=== PATIENT | female | born 1990 | race Caucasian/White ===

== ENCOUNTER 2016-04-30 00:24 | Emergency (ER) | payer OTHER ==
[2016-04-30 01:02] VITALS: BP 140/82; PULSE 77; TEMP 97.5; BMI 31.9
--- NOTE | 2016-04-30 01:11 | PDOC ---
History of Present Illness - History of Present Illness Initial Comments: 04/30/16 01:12 The patient is a 26 year old female with history of PCOS and anemia who presents to the ED complaining of abdominal pain, in the midabdomen radiating to the right lower quadrant, sharp, persistent, with associated nausea and multiple episodes of nonbloody, nonbilious vomiting that began today. She states her nausea began around 3PM today and she subsequently took Zofran. At approximately 9 PM she began to experience abdominal pain and vomiting. No fever or chills. No dysuria, hematuria, frequency, or urgency. No abnormal vaginal bleeding or discharge. <Rebecca Carter - Last Filed: 04/30/16 03:48> - General History Source: Patient <Tito Robb - Last Filed: 04/30/16 04:00> - General Chief Complaint: Pain Stated Complaint: ABD PAIN,VOMITING Time Seen by Provider: 04/30/16 01:07 Past History <Rebecca Carter - Last Filed: 04/30/16 03:48> - Past Medical History Anemia: No Asthma: No Cancer: No Cardiac Disorders: No CVA: No COPD: No CHF: No Dementia: No Diabetes: No GI Disorders: No Disorders: No HTN: No Hypercholesterolemia: No Liver Disease: No Seizures: No Thyroid Disease: No - Immunization History Immunization Up to Date: No - Psycho/Social/Smoking Cessation Hx Anxiety: No Suicidal Ideation: No Smoking Status: No Smoking History: Never smoked Have you smoked in the past 12 months: No Number of Cigarettes Smoked Daily: 0 Information on smoking cessation initiated: No Hx Alcohol Use: No Drug/Substance Use Hx: No Substance Use Type: None Hx Substance Use Treatment: No <Tito Robb - Last Filed: 04/30/16 04:00> - Past Medical History Allergies/Adverse Reactions: Allergies Allergy/AdvReac Type Severity Reaction Status Date / Time No Known Drug Allergies Allergy Verified 04/30/16 00:58 Home Medications: Ambulatory Orders Ondansetron [Zofran *Odt*] 4 mg SL TID #30 od.tablet 04/30/16 Review of Systems - Review of Systems Able to Perform ROS?: Yes Comments:: 04/30/16 01:15 GENERAL/CONSTITUTIONAL: No fever or chills. No weakness. HEAD, EYES, EARS, NOSE AND THROAT: No change in vision. No ear pain or discharge. No sore throat CARDIOVASCULAR: No chest pain or shortness of breath. RESPIRATORY: No cough, wheezing, or hemoptysis. GASTROINTESTINAL: +Abdominal pain (midabdominal and RLQ), nausea, vomiting. No diarrhea or constipation. GENITOURINARY: No dysuria, frequency, or change in urination. MUSCULOSKELETAL: No joint or muscle swelling or pain. No neck or back pain. SKIN: No rash NEUROLOGIC: No headache, vertigo, loss of consciousness, or change in strength/ sensation. ENDOCRINE: No increased thirst. No abnormal weight change. HEMATOLOGIC/LYMPHATIC: No anemia, easy bleeding, or history of blood clots. ALLERGIC/IMMUNOLOGIC: No hives or skin allergy. <Rebecca Carter - Last Filed: 04/30/16 03:48> *Physical Exam - Vital Signs Last Vital Signs Temp Pulse Resp BP Pulse Ox 97.5 F L 77 14 140/82 100 04/30/16 00:59 04/30/16 00:59 04/30/16 00:59 04/30/16 00:59 04/30/16 00:59 - Physical Exam Comments: 04/30/16 01:16 GENERAL: Awake, alert, and fully oriented, uncomfortable appearing. HEAD: No signs of trauma EYES: PERRLA, EOMI, sclera anicteric, conjunctiva clear ENT: Auricles normal inspection, hearing grossly normal, nares patent, oropharynx clear without exudates. Moist mucosa NECK: Normal ROM, supple, no lymphadenopathy, JVD, or masses LUNGS: Breath sounds equal, clear to auscultation bilaterally. No wheezes, and no crackles HEART: Regular rate and rhythm, normal S1 and S2, no murmurs, rubs or gallops ABDOMEN: Soft, normoactive bowel sounds. Mild to moderate midabdominal tenderness with RLQ tenderness. Mild McBurney's point tenderness. No guarding, no rebound. No masses EXTREMITIES: Normal range of motion, no edema. No clubbing or cyanosis. No cords, erythema, or tenderness NEUROLOGICAL: Cranial nerves II through XII grossly intact. Normal speech, normal gait SKIN: Warm, Dry, normal turgor, no rashes or lesions noted. <Rebecca Carter - Last Filed: 04/30/16 03:48> - Vital Signs Last Vital Signs Temp Pulse Resp BP Pulse Ox 97.5 F L 77 14 140/82 100 04/30/16 00:59 04/30/16 00:59 04/30/16 00:59 04/30/16 00:59 04/30/16 00:59 <Tito Robb - Last Filed: 04/30/16 04:00> ED Treatment Course - LABORATORY CBC & Chemistry Diagram: 04/30/16 01:20 04/30/16 01:20 - RADIOLOGY Radiograph Interpretation: 04/30/16 03:48 CT of abdomen and pelvis with contrast FINDINGS: Negative for appendicitis. Normal appendix visualized. No bowel obstruction, or free air. Negative for diverticulitis or colitis. There is a large amount of stool/constipation in the right and transverse colon. There is a 1.7 cm right adnexal cyst with some adjacent adnexal free fluid and free fluid in the pelvic cul-de-sac. May be a rupturing cyst. IUD noted in the uterus. Normal kidneys urinary tract and urinary bladder. Normal liver. Normal gallbladder. Normal spleen. Normal pancreas. Normal adrenal glands. THIS DOCUMENT HAS BEEN ELECTRONICALLY SIGNED Aleksandar Gunderson MD 04/30/2016 03:44 EST <Rebecca Carter - Last Filed: 04/30/16 03:48> - LABORATORY CBC & Chemistry Diagram: 04/30/16 01:20 04/30/16 01:20 <Tito Robb - Last Filed: 04/30/16 04:00> Medical Decision Making - Medical Decision Making 04/30/16 03:56 Dr. Robb: The scribe's documentation has been prepared under my direction and personally reviewed by me in its entirery. I confirm that the note above accurately reflects all work, treatment, procedures, and medical decision making performed by me. Pt found to be constipated on CT scan Abd/ pel. No sign of sbo or colitis. Pt to be discharged and advised to use Miralax as needed of results. <Tito Robb - Last Filed: 04/30/16 04:00> *DC/Admit/Observation/Transfer - Attestations Scribe Attestion: 04/30/16 01:17 Documentation prepared by Rebecca Carter, acting as ophthalmic medical technologist for Tito Robb DO. <Rebecca Carter - Last Filed: 04/30/16 03:48> - Discharge Dispostion Admit: No <Tito Robb - Last Filed: 04/30/16 04:00> Diagnosis at time of Disposition: Abdominal pain Qualifiers: Abdominal location: generalized Qualified Code(s): R10.84 - Generalized abdominal pain Constipation Qualifiers: Constipation type: unspecified constipation type Qualified Code(s): K59.00 - Constipation, unspecified - Discharge Dispostion Disposition: HOME Condition at time of disposition: Stable - Prescriptions Prescriptions: Ondansetron [Zofran *Odt*] 4 mg SL TID #30 od.tablet - Referrals Referrals: Shania Brizuela [Primary Care Provider] - - Patient Instructions Printed Discharge Instructions: DI for Constipation, DI for Abdominal Pain- Adult, Increased Dietary Fiber May Improve Constipation Conditions With Pelvic Brad Additional Instructions: follow up with your doctor as needed. Use medication as needed. Increase your free water and occasionally use Miralax as discussed
[2016-04-30] MEDS ORDERED: morphine CARPU-JECT 2 MG/1 ML DISP.SYRIN IVPUSH ONE ×2 (01:12→02:40)
[2016-04-30] MEDS ORDERED: ONDANSETRON 4 MG/2 ML VIAL IVPUSH STA ×2 (01:12→02:28)
[2016-04-30] MEDS ORDERED: SODIUM CHLORIDE 1,000 ML IV STA (01:13)
[2016-04-30] MEDS ORDERED: morphine CARPU-JECT 2 MG/1 ML DISP.SYRIN ONE ×2 (01:31→02:46)
[2016-04-30] MEDS ORDERED: morphine CARPU-JECT 4 MG/1 ML DISP.SYRIN ONE ×2 (01:31→02:46)
[2016-04-30] MEDS ORDERED: ONDANSETRON 4 MG/2 ML VIAL ONE ×2 (01:31→02:24)
[2016-04-30 01:35] LABS: URINE APPEARANCE CLOUDY; URINE BILIRUBIN NEGATIVE (NEGATIVE); URINE BLOOD NEGATIVE (NEGATIVE); URINE COLOR YELLOW; URINE GLUCOSE (UA) NEGATIVE (NEGATIVE); URINE KETONE NEGATIVE (NEGATIVE); URINE NITRITE NEGATIVE (NEGATIVE); URINE PROTEIN NEGATIVE (NEGATIVE); URINE UROBILINOGEN 2.0 E.U/dl E.U./dl (0.2-1.0)
[2016-04-30 01:36] LABS: BASOPHIL 1.2 % (0-2.0); MCH 23.8 pg (25.7-33.7); MCHC 32.3 g/dl (32.0-36.0); MEAN CELL VOLUME 73.7 fl (80-96); MEAN PLT VOLUME 9.3 fl (7.5-11.1); NEUTROPHILS 65.4 % (42.8-82.8); PLATELET COUNT 369 K/MM3 (134-434); RDW 16.3 % (11.6-15.6); WHITE BLOOD COUNT 11.9 K/mm3 (4.0-10.0)
[2016-04-30 01:45] LABS: URINE LEUK ESTERASE 1+ (NEGATIVE)
[2016-04-30 01:48] LABS: URINE BACTERIA RARE /hpf (NONE SEEN); URINE HYALINE CAST 1 /lpf; URINE MUCUS RARE; URINE RBC 1 /hpf (0-3); URINE WBC 5 /hpf (3-5)
[2016-04-30 02:08] LABS: ALK PHOS 68 U/L (45-117); AMYLASE 50 U/L (25-115); ANION GAP 10 (8-16); BILIRUBIN,TOTAL 0.3 mg/dL (0.2-1.0); CALCIUM 9.1 mg/dL (8.5-10.1); CO2 27 mmol/L (21-32); CREATININE 0.8 mg/dL (0.55-1.02); GLUCOSE,RANDOM 93 mg/dL (74-106); SGOT/AST 24 U/L (15-37); SGPT/ALT 22 U/L (12-78); TOT PROT 7.2 g/dl (6.4-8.2)
== END 2016-04-30 04:19 | disposition home or self-care (01) ==
LOC: JER 00:24
PROC: 3E033NZ Introduction of Analgesics, Hypnotics, Sedatives into Peripheral Vein, Percutaneous Approach (ICD-10-PCS; principal; 2016-04-30)
PROC: 3E033GC Introduction of Other Therapeutic Substance into Peripheral Vein, Percutaneous Approach (ICD-10-PCS; 2016-04-30)
DX: K59.00 Constipation, unspecified (principal)
CPT/HCPCS: 36415; 74177-TC; 80053; 81003; 81015; 82150; 83690; 83735; 84703; 85025; 96374; 96375; 99283-25

== ENCOUNTER 2021-03-04 13:42 | Emergency (ER) | payer OTHER ==
[2021-03-04 14:20] VITALS: BP 129/79; PULSE 71; TEMP 97.9; BMI 38.9
== END 2021-03-04 16:44 | disposition home or self-care (01) ==
LOC: JER 13:42
DX: U07.1 COVID-19 (principal)
CPT/HCPCS: 71046-TC-FY; 99283-25